=== PATIENT | female | born 1965 ===

== ENCOUNTER → 2022-07-10 08:27 | Outpatient (CLI) | payer OTHER, SELFPAY ==
--- NOTE | ~2022-07-10 | MR_ITS ---
MRI of the left foot CLINICAL HISTORY: Pain TECHNIQUE: Sagittal T1-weighted and STIR images, axial proton-density and proton-density fat-sat imag es, and coronal T1-weighted and proton-density fat-sat images were acquired. FINDINGS: There is focal subchondral marrow edema at the talar head, likely due to a focal high-grade chondral lesion at the talonavicular articulation. Remaining bone marrow signals otherwise are unrem arkable. No fracture or other bone marrow edema identified. No evidence for osteomyelitis. Joint spac es otherwise are intact. No joint effusion. Visualized flexor and extensor tendons are intact. No soft tissue mass or fluid collection evident. M usculature of the foot x-rays normal signal intensity. No significant abnormality seen at the location of the marker near the base of the fifth metatarsal. IMPRESSION: No significant abnormality seen in the vicinity of the marker near the base of the fifth metatarsal. Focal high-grade chondral lesion at the talar head, with focal subchondral marrow edema in the talar head. Reviewed, dictated and finalized at location [facility] IMPRESSION: No significant abnormality seen in the vicinity of the marker near the base of the fifth metatarsal. Focal high-grade chondral lesion at the talar head, with focal subchondral phylicia ow edema in the talar head.
== END ==
PROVIDERS: PCP Internal Medicine; Visit Provider Orthopaedic Surgery
DX: M79.672 Pain in left foot (principal); M89.9 Disorder of bone, unspecified
CPT/HCPCS: 73718